=== PATIENT | female | born 1985 | race Caucasian/White ===

== ENCOUNTER 2021-08-24 06:04 | Inpatient (IN) | payer OTHER ==
[2021-08-24] MEDS ORDERED: METHYLERGONOVINE 0.2 MG/ML 1 ML AMP IM PRN (06:21)
[2021-08-24] MEDS ORDERED: CARBOPROST TROMETHAMINE 250 MCG/ML 1 ML AMP IM PRN (06:21)
[2021-08-24] MEDS ORDERED: TERBUTALINE 1 MG/ML VIAL SQ PRN (06:21)
[2021-08-24] MEDS ORDERED: LIDOCAINE 0.5% (PF) 5 MG/ML (50 ML SDV) SQ PRN (06:21)
[2021-08-24] MEDS ORDERED: OXYTOCIN 10 UNIT/ML 1 ML VIAL IM PRN (06:21)
[2021-08-24] MEDS ORDERED: OXYTOCIN 30 UNITS/500 ML NS 30 UNIT in SALINE 1 500ML.BAG IV SCH ×2 (06:30→22:00)
[2021-08-24] MEDS: LACTATED RINGERS 1,000 ML IV SCH ×4 (06:32→20:29)
[2021-08-24 07:24] LABS: Basophils % (A) 0 %; Eosinophils # (A) 0.2 k/uL (0-0.7); Eosinophils % (A) 2 %; HGB 11.9 gm/dL (11.4-16.0); Lymphocytes # (A) 2.2 k/uL (1.0-4.8); Lymphocytes % (A) 27 %; MCH 32.4 pg (25.0-35.0); MCHC 33.9 g/dL (31.0-37.0); MCV 95.4 fL (80.0-100.0); Mean Platelet Volume 8.1; Monocytes # (A) 0.4 k/uL (0-1.0); Monocytes % (A) 5 %; Neutrophils # (A) 5.3 k/uL (1.3-7.7); Neutrophils % (A) 65 %; Platelet Count 231 k/uL (150-450); RBC 3.67 m/uL (3.80-5.40); RDW 12.7 % (11.5-15.5); WBC 8.3 k/uL (3.8-10.6)
--- NOTE | 2021-08-24 08:51 | P.HPOB ---
History of Present Illness H&P Date: 08/24/21 Chief Complaint: IUP at 39-0/7 weeks This is a 36-year-old 1 para 0 at 39 0/7 weeks, estimated due date of 08/31. Patient presents for elective induction of labor. Patient has been receiving routine care which has been essentially uncomplicated. Today patient notes good movement she denies contractions or vaginal bleeding. bloodwork this patient is a blood type of A+, rubella status immune, B surface antigen negative, HIV negative, RPR is nonreactive, group beta strep cultures are negative. Review of Systems Constitutional: Denies chills, Denies fatigue, Denies fever Ears, nose, mouth and throat: Denies headache Cardiovascular: Reports leg edema Respiratory: Denies dyspnea Gastrointestinal: Denies nausea, Denies vomiting Genitourinary: Reports Past Medical History Past Medical History: Asthma, Thyroid Disorder Additional Past Medical History / Comment(s): no thyroid or asthma issues in 5 years History of Any Multi-Drug Resistant Organisms: None Reported Past Surgical History: Orthopedic Surgery Additional Past Surgical History / Comment(s): gastic sleeve, lasik eye, right knee miniscus Past Anesthesia/Blood Transfusion Reactions: No Reported Reaction Past Psychological History: No Psychological Hx Reported Smoking Status: Never smoker Past Drug Use History: None Reported - Past Family History Mother Family Medical History: Cancer, Thyroid Disorder Additional Family Medical History / Comment(s): invasive ductal carcinoma Sister(s) Family Medical History: Thyroid Disorder Father Family Medical History: Hyperlipidemia Medications and Allergies Home Medications Medication Instructions Recorded Confirmed Type Aspirin 81 mg PO DAILY 08/24/21 08/24/21 History Biotin 10,000 mcg PO DAILY 08/24/21 08/24/21 History Pnv,Calcium 72/Iron/Folic Acid 1 each PO DAILY 08/24/21 08/24/21 History [ Plus Tablet] Sennosides/Docusate Sodium 1 each PO DAILY 08/24/21 08/24/21 History [Senna-S 8.6-50 mg Tablet] Allergies Allergy/AdvReac Type Severity Reaction Status Date / Time aspartame Allergy Intermediate Nausea & Verified 08/24/21 06:19 Vomiting latex Allergy Intermediate Rash/Hives Verified 08/24/21 06:19 Exam Osteopathic Statement: *. No significant issues noted on an osteopathic structural exam other than those noted in the History and Physical/Consult. 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 in no acute distress, breathing is noted to be nonlabored, heart has regular rate and rhythm, abdomen is gravid and appropriate for gestational age, on cervical exam she is 2/70/-2 station, amniotomy is performed and clear fluid is obtained, heart tones are noted to be categ ory 1 and she is garo every 2 minutes Results Result Diagrams: 08/24/21 06:35 Abnormal Lab Results - Last 24 Hours (Table) 08/24/21 Range/Units 06:35 RBC 3.67 L (3.80-5.40) m/uL Assessment and Plan (1) Term Current Visit: Yes Status: Acute Code(s): Z34.90 - ENCNTR FOR SUPRVSN OF NORMAL , UNSP, UNSP TRIMESTER SNOMED Code(s): 22220879 (2) AMA (advanced maternal age) primigravida 35+ Current Visit: Yes Status: Acute Code(s): O09.519 - SUPERVISION OF ELDERLY PRIMIGRAVIDA, UNSPECIFIED TRIMESTER SNOMED Code(s): 49501787 Plan: 36-year-old 1 para 0 at 39 0/7 weeks presents for elective induction of labor. Pitocin induction of labor is begun per hospital protocol, amniotomy is performed clear fluid was obtained. Options for analgesia during labor discussed including Stadol, epidural. Patient states understanding. Anticipate spontaneous vaginal delivery later today.
[2021-08-24] MEDS: BUTORPHANOL 1 MG/ML 1 ML VIAL IV PRN ×2 (11:20→14:54)
[2021-08-24] MEDS ORDERED: SODIUM CHLORIDE 0.9% 100 ML BAG ONE (16:02)
[2021-08-24] MEDS ORDERED: ROPIVACAINE 5MG/ML 20ML VIAL ONE (16:02)
[2021-08-24] MEDS ORDERED: fentaNYL (PF) 50 MCG/ML 5 ML AMP ONE (16:02)
[2021-08-24] MEDS ORDERED: ZOLPIDEM 5 MG TAB PO PRN (22:00)
[2021-08-24] MEDS ORDERED: diphenhydrAMINE 50 MG/ML 1 ML VIAL IVP PRN ×2 (22:00)
[2021-08-24] MEDS ORDERED: ACETAMINOPHEN TAB 325 MG TAB PO PRN (22:00)
[2021-08-24] MEDS ORDERED: diphenhydrAMINE 50 MG CAP PO PRN (22:00)
[2021-08-24] MEDS ORDERED: diphenhydrAMINE 25 MG CAP PO PRN (22:00)
[2021-08-24] MEDS ORDERED: HYDROCORTISONE 2.5% RECTAL CREAM 30 GM TUBE RECTAL PRN (22:00)
[2021-08-24] MEDS ORDERED: BENZOCAINE/MENTHOL SPRAY 1 GM/SPRAY AEROSOL TOPICAL PRN (22:00)
[2021-08-24] MEDS ORDERED: SIMETHICONE 80 MG CHEWABLE PO PRN (22:00)
[2021-08-24] MEDS ORDERED: LANOLIN CREAM 5 GM TUBE TOPICAL PRN (22:00)
--- NOTE | 2021-08-24 22:05 | P.PROBDLV ---
Vaginal Delivery Note - . Vaginal Delivery Note: This is a 36-year-old 1 para 0 that presented to labor and delivery at 39 0/7 weeks for induction of labor. Patient was admitted to labor and delivery and Pitocin induction of labor was begun. Patient underwent amniotomy and clear fluid was obtained. Patient progressed through labor eventually becoming uncomfortable and requested epidural placement. Epidural was placed without difficulty by the anesthesia department. Patient progressed to complete began pushing and had a normal spontaneous vaginal delivery of a viable female at 2131, weight of 8 lbs. 8 oz., loose nuchal cord was noted at delivery and delivered through. Apgars of 8 and 9 at one and 5 minutes respectively were noted. After two-minute delay the umbilical cord was doubly clamped and cut and the infant was handed to the maternal abdomen. A spontaneous cry was noted. On inspection the patient's vaginal vault a left lateral sidewall laceration was appreciated. The placenta was delivered spontaneously intact with a three- vessel cord. The laceration site was instilled with lidocaine and closed in the usual fashion with 3-0 Rapide. The uterus is noted to be firm and below the umbilicus. A red rubber catheter was used to drain the bladder of 100 mL of clear yellow urine. Inspection of laceration sites revealed hemostasis. Uterus once again was noted to be firm and below the umbilicus. All counts are noted to be correct 2. Patient and infant tolerated delivery well and are resting comfortably.
[2021-08-24] MEDS: IBUPROFEN 600 MG TAB PO SCH (22:28)
[2021-08-25] MEDS: IBUPROFEN 600 MG TAB PO SCH ×2 (04:31→10:00)
[2021-08-25] MEDS: SENNOSIDES-DOCUSATE SODIUM 1 EACH TAB PO SCH ×2 (07:45→19:30)
--- NOTE | 2021-08-25 08:57 | P.PNOBGVD ---
Subjective - Subjective Principal diagnosis: post day 1, status post normal spontaneous vaginal delivery Interval history: patient did well overnight. She is ambulating and voiding without difficulty. She is tolerating a regular diet without nausea or vomiting. Her lochia is minimal. She is breast-feeding. She states her pain is controlled. Patient reports: Reports appetite normal, Reports voiding normally, Reports pain well controlled, Reports ambulating normally : doing well, nursing well Objective - Latest Vital Signs Latest vital signs: Vital Signs Temp Pulse Resp BP 08/25/21 08:00 97.8 F 71 16 119/80 08/25/21 04:00 97.7 F 89 16 113/72 08/25/21 00:00 97.7 F 90 16 120/70 08/24/21 23:30 82 16 118/68 08/24/21 23:00 79 16 119/63 08/24/21 22:45 94 16 128/78 08/24/21 22:30 113 H 16 121/68 08/24/21 22:15 86 16 132/65 08/24/21 22:00 97.2 F L 100 16 138/56 Intake and Output 08/24/21 08/25/21 08/25/21 22:59 06:59 14:59 Intake Total 172.567 Balance 172.567 Intake: Intake, IV Titration 172.567 Amount Oxytocin 30 Units/500 ml 172.567 Ns 30 unit In Saline 1 500ml.bag @ Per Protocol IV .Q0M [facility] Rx#:[id number] Other: # Voids 100 - Exam Extremities: Present: normal, edema Abdomen: Present: normal appearance Uterus: Present: normal, firm Assessment and Plan (1) Term Current Visit: Yes Status: Acute Code(s): Z34.90 - ENCNTR FOR SUPRVSN OF NORMAL , UNSP, UNSP TRIMESTER SNOMED Code(s): 12271491 (2) AMA (advanced maternal age) primigravida 35+ Current Visit: Yes Status: Acute Code(s): O09.519 - SUPERVISION OF ELDERLY PRIMIGRAVIDA, UNSPECIFIED TRIMESTER SNOMED Code(s): 31455703 (3) Status post normal vaginal delivery Current Visit: Yes Status: Acute Code(s): NBO6856 - SNOMED Code(s): 755478370 (4) Obstetric vaginal laceration with first degree perineal laceration Current Visit: Yes Status: Acute Code(s): O70.0 - FIRST DEGREE PERINEAL LACERATION DURING DELIVERY SNOMED Code(s): 616737874 Plan: 36-year-old 1 now para 1 status post normal spontaneous vaginal delivery, doing well . Plan to continue routine care. Anticipate discharge home tomorrow.
[2021-08-26 00:25] VITALS: RESP 16
[2021-08-26] MEDS: IBUPROFEN 600 MG TAB PO SCH (00:27)
[2021-08-26] MEDS: SENNOSIDES-DOCUSATE SODIUM 1 EACH TAB PO SCH (08:06)
[2021-08-26 08:17] VITALS: BP 123/76; PULSE 87; TEMP 97.8
--- NOTE | 2021-08-26 12:54 | P.DS ---
Providers Date of admission: 08/24/21 06:04 Expected date of discharge: 08/26/21 Attending physician: Merline Barnes Primary care physician: Stated None - Discharge Diagnosis(es) (1) Term Current Visit: Yes Status: Acute (2) AMA (advanced maternal age) primigravida 35+ Current Visit: Yes Status: Acute (3) Status post normal vaginal delivery Current Visit: Yes Status: Acute (4) Obstetric vaginal laceration with first degree perineal laceration Current Visit: Yes Status: Acute Hospital Course: this is a 36-year-old 1 now para 1 presented to labor and delivery at 39-0/7 weeks for induction of labor. for full details on this patient please see the dictated history and physical. Patient was admitted to labor and delivery and Pitocin induction of labor was begun per hospital protocol. patient underwent amniotomy clear fluid was obtained. Patient did request epidural placement for pain during labor. Anesthesia was able to place epidural without difficulty. Patient made slow progress eventually becoming complete and began pushing. Patient had a normal spontaneous vaginal delivery of a viable female at 2131, weight of 8 lbs. 8 oz., Apgars of 8 and 9 at one and 5 minutes respectively were noted. Patient did sustain a first-degree vaginal laceration which was repaired in the usual fashion with 3-0 Rapide. The laceration was appreciated on the lateral sidewall. Patient's course has been uneventful. On this day #2 she is ambulating and voiding without difficulty. She is tolerating a regular diet without nausea or vomiting. She states her pain is well-controlled and she does desire discharge home. Plan - Discharge Summary New Discharge Prescriptions: No Action Pnv,Calcium 72/Iron/Folic Acid [ Plus Tablet] 1 each PO DAILY Biotin 10,000 mcg PO DAILY Aspirin 81 mg PO DAILY Sennosides/Docusate Sodium [Senna-S 8.6-50 mg Tablet] 1 each PO DAILY Discharge Medication List Aspirin 81 mg PO DAILY 08/24/21 [History] Biotin 10,000 mcg PO DAILY 08/24/21 [History] Pnv,Calcium 72/Iron/Folic Acid [ Plus Tablet] 1 each PO DAILY 08/24/21 [History] Sennosides/Docusate Sodium [Senna-S 8.6-50 mg Tablet] 1 each PO DAILY 08/24/21 [History] Follow up Appointment(s)/Referral(s): Merline Barnes DO [Doctor of Osteopathic Medicine] - 4 Weeks Patient Instructions/Handouts: Vaginal Delivery (DC), Vaginal Delivery (GEN) Discharge Disposition: HOME SELF-CARE
== END 2021-08-26 14:00 | disposition home or self-care (01) | DRG 807 ==
LOC: 4FBP 06:04
PROVIDERS: ADMIT Obstetrics & Gynecology Obstetrics; ATTEND Obstetrics & Gynecology Obstetrics
PROC: 10E0XZZ Delivery of Products of Conception, External Approach (ICD-10-PCS; principal; 2021-08-24)
PROC: 0HQ9XZZ Repair Perineum Skin, External Approach (ICD-10-PCS; 2021-08-24)
PROC: 3E033VJ Introduction of Other Hormone into Peripheral Vein, Percutaneous Approach (ICD-10-PCS; 2021-08-24)
PROC: 10907ZC Drainage of Amniotic Fluid, Therapeutic from Products of Conception, Via Natural or Artificial Opening (ICD-10-PCS; 2021-08-24)
DX: O70.0 First degree perineal laceration during delivery (principal); Z37.0 Single live birth; O69.81X0 Labor and delivery complicated by cord around neck, without compression, not applicable or unspecified; K21.9 Gastro-esophageal reflux disease without esophagitis; O99.62 Diseases of the digestive system complicating childbirth; Z79.82 Long term (current) use of aspirin; Z80.3 Family history of malignant neoplasm of breast; Z83.49 Family history of other endocrine, nutritional and metabolic diseases; Z3A.39 39 weeks gestation of pregnancy; Z91.040 Latex allergy status; Z91.02 Food additives allergy status
CPT/HCPCS: 85025; 86850; 86900; 86901

== ENCOUNTER 2022-08-02 22:01 | Emergency (ER) | payer OTHER ==
[2022-08-02 22:20] VITALS: RESP 16; TEMP 97.9
[2022-08-02] MEDS ORDERED: SODIUM CHLORIDE 0.9% 1,000 ML IV STA (22:57)
[2022-08-02 23:40] LABS: Basophils % (A) 0 %; Eosinophils # (A) 0.1 k/uL (0-0.7); Eosinophils % (A) 1 %; HCT 36.8 % (34.0-46.0); HGB 12.7 gm/dL (11.4-16.0); Lymphocytes % (A) 11 %; MCHC 34.5 g/dL (31.0-37.0); MCV 92.7 fL (80.0-100.0); Mean Platelet Volume 7.8; Monocytes # (A) 0.3 k/uL (0-1.0); Monocytes % (A) 3 %; Neutrophils # (A) 7.5 k/uL (1.3-7.7); Neutrophils % (A) 83 %; Platelet Count 221 k/uL (150-450); RBC 3.97 m/uL (3.80-5.40); RDW 12.5 % (11.5-15.5)
[2022-08-02 23:50] LABS: ALT 14 U/L (4-34); AST 18 U/L (14-36); African American GFR (CKD) >90 (>60 ml/min/1.73 sqM); Albumin 3.5 g/dL (3.5-5.0); Alkaline Phosphatase 136 U/L (38-126); Anion Gap 8 mmol/L; Appearance,Urine Cloudy (Clear); Bacteria,Urine Rare /hpf; Bilirubin,Urine Negative (Negative); Blood Urea Nitrogen 10 mg/dL (7-17); Blood,Urine Negative (Negative); Calcium 8.1 mg/dL (8.4-10.2); Carbon Dioxide 22 mmol/L (22-30); Chloride 103 mmol/L (98-107); Color,Urine Yellow; Glucose 96 mg/dL (74-99); Glucose,Urine (UA) Negative (Negative); INR 0.9 (<1.2); Ketones,Urine 2+ (Negative); Leukocyte Esterase,Urine Small (Negative); Mucus,Urine Moderate /hpf; Nitrite,Urine Negative (Negative); Non-African American GFR(CKD) >90 (>60 ml/min/1.73 sqM); Partial Thromboplastin Time 23.5 sec (22.0-30.0); Potassium 3.5 mmol/L (3.5-5.1); Protein,Urine 1+ (Negative); Prothrombin Time 10.1 sec (9.0-12.0); RBC,Urine 3 /hpf (0-5); Sodium 133 mmol/L (137-145); Squamous Epithelial Cell,Urine 19 /hpf (0-4); Total Bilirubin 0.5 mg/dL (0.2-1.3); Total Protein 6.5 g/dL (6.3-8.2); WBC,Urine 3 /hpf (0-5)
--- NOTE | 2022-08-03 00:05 | XR ---
EXAMINATION TYPE: XR chest 1V DATE OF EXAM: 08/02/2022 COMPARISON: 01/19/2016 HISTORY: Difficulty breathing TECHNIQUE: FINDINGS: Heart and mediastinum are normal. Lungs are clear. Diaphragm is normal. Bony thorax is inta ct. There are chest leads. IMPRESSION: Normal chest. No change.
[2022-08-03] MEDS ORDERED: METOCLOPRAMIDE 5 MG/ML 2 ML VIAL IVP STA (01:15)
[2022-08-03] MEDS ORDERED: diphenhydrAMINE 50 MG/ML 1 ML VIAL IVP STA (01:15)
--- NOTE | 2022-08-03 01:16 | ED ---
SOB HPI - General Chief Complaint: Shortness of Breath Stated Complaint: SOB, Vomiting, 32 Week Preg Time Seen by Provider: 08/02/22 22:26 Source: patient Mode of arrival: ambulatory Limitations: no limitations - History of Present Illness Initial Comments: 37-year-old female with past medical history of mild intermittent asthma with shortness of breath, nausea and vomiting. Patient is currently 32 weeks . States that for the past several days she has had nausea with poor oral intake. Denies eating any tainted foods. No sick contacts with similar symptoms. Reports that she did not have much nausea with this . Denies any issues with hyperglycemia or hypertension. Today the patient felt as if she could not get a deep breath. She called her OB who recommended that she come into the emergency room for evaluation. She denies any abdominal pain, vaginal bleeding or cramping. No chest pain. No calf pain or swelling. No history of DVT or PE. No fevers, chills or cough. Patient did take Pepto 3 days ago for upset stomach however has not used any other at home medications. No other alleviating, precipitating or modifying factors - Related Data Home Medications Medication Instructions Recorded Confirmed Aspirin 81 mg PO DAILY 08/24/21 08/24/21 Biotin 10,000 mcg PO DAILY 08/24/21 08/24/21 Vit No.180/Iron/Folic 1 each PO DAILY 08/24/21 08/24/21 [ Plus Tablet] Sennosides/Docusate Sodium 1 each PO DAILY 08/24/21 08/24/21 [Senna-S 8.6-50 mg Tablet] Previous Rx's Medication Instructions Recorded Cephalexin [Keflex] 500 mg PO BID 1 Days #20 cap 08/03/22 Allergies Allergy/AdvReac Type Severity Reaction Status Date / Time aspartame Allergy Intermediate Nausea & Verified 08/24/21 06:19 Vomiting latex Allergy Intermediate Rash/Hives Verified 08/24/21 06:19 Review of Systems ROS Statement: Those systems with pertinent positive or pertinent negative responses have been documented in the HPI. ROS Other: All systems not noted in ROS Statement are negative. Past Medical History Past Medical History: Asthma, Thyroid Disorder Additional Past Medical History / Comment(s): no thyroid or asthma issues in 5 years History of Any Multi-Drug Resistant Organisms: None Reported Past Surgical History: Orthopedic Surgery Additional Past Surgical History / Comment(s): gastic sleeve, lasik eye, right knee miniscus Past Anesthesia/Blood Transfusion Reactions: No Reported Reaction Past Psychological History: No Psychological Hx Reported Smoking Status: Never smoker Past Alcohol Use History: None Reported Past Drug Use History: None Reported - Past Family History Mother Family Medical History: Cancer, Thyroid Disorder Additional Family Medical History / Comment(s): invasive ductal carcinoma Sister(s) Family Medical History: Thyroid Disorder Father Family Medical History: Hyperlipidemia General Exam Limitations: no limitations General appearance: alert, in no apparent distress Head exam: Present: atraumatic, normocephalic, normal inspection Eye exam: Present: normal appearance, PERRL, EOMI. Absent: scleral icterus, conjunctival injection, periorbital swelling ENT exam: Present: normal exam, mucous membranes moist Neck exam: Present: normal inspection. Absent: tenderness, meningismus, lymphadenopathy Respiratory exam: Present: normal lung sounds bilaterally. Absent: respiratory distress, wheezes, rales, rhonchi, stridor Cardiovascular Exam: Present: regular rate, normal rhythm, normal heart sounds. Absent: systolic murmur, diastolic murmur, rubs, gallop, clicks GI/Abdominal exam: Present: soft, normal bowel sounds, other (gravid). Absent: distended, tenderness, guarding, rebound, rigid Extremities exam: Present: normal inspection, full ROM, normal capillary refill. Absent: tenderness, pedal edema, joint swelling, calf tenderness Back exam: Present: normal inspection Neurological exam: Present: alert, oriented X3, CN II-XII intact Psychiatric exam: Present: normal affect, normal mood Skin exam: Present: warm, dry, intact, normal color. Absent: rash Course Vital Signs 08/02/22 08/03/22 08/03/22 22:18 00:16 02:23 Temperature 97.9 F Pulse Rate 97 79 92 Respiratory 16 16 16 Rate Blood Pressure 106/72 104/61 112/72 O2 Sat by Pulse 98 Oximetry Medical Decision Making - Medical Decision Making On arrival patient was placed into room 26. Thorough history and physical exam was performed. IV access was established. Patient was given a liter bolus normal saline, 10 mg of Reglan and 25 mg of Benadryl. Laboratory studies are conducted and reviewed. Mild hyponatremia with a sodium of 133. Urine shows 2+ ketones. Rare bacteria however this is not a clean sample. Covid and influenza are negative. Chest x-ray is performed with permission from the patient which demonstrates no acute findings. Patient is reevaluated and reports that she feels improved in her symptoms. I did discuss the diagnosis, differential treatment options. Ultrasound is performed at bedside. Demonstrates positive heart tone of 146. Positive movement. Head is down. Patient r eports that she feels improved with IV fluids. She will be discharged home. Instructed to increase fluid intake. Follow with her OB in office in 2-4 days. I offered her something for nausea at home however patient refused. She is instructed to return for any new or worsening symptoms. Patient was agreeable to plan and discharged home in stable condition - Lab Data Result diagrams: 08/02/22 23:27 08/02/22 23:27 Lab Results 08/02/22 08/02/22 08/02/22 Range/Units 23:27 23:27 23:27 WBC 9.0 (3.8-10.6) k/uL RBC 3.97 (3.80-5.40) m/uL Hgb 12.7 (11.4-16.0) gm/dL Hct 36.8 (34.0-46.0) % MCV 92.7 (80.0-100.0) fL MCH 32.0 (25.0-35.0) pg MCHC 34.5 (31.0-37.0) g/dL RDW 12.5 (11.5-15.5) % Plt Count 221 (150-450) k/uL MPV 7.8 Neutrophils % 83 % Lymphocytes % 11 % Monocytes % 3 % Eosinophils % 1 % Basophils % 0 % Neutrophils # 7.5 (1.3-7.7) k/uL Lymphocytes # 1.0 (1.0-4.8) k/uL Monocytes # 0.3 (0-1.0) k/uL Eosinophils # 0.1 (0-0.7) k/uL Basophils # 0.0 (0-0.2) k/uL PT 10.1 (9.0-12.0) sec INR 0.9 (<1.2) APTT 23.5 (22.0-30.0) sec Sodium (137-145) mmol/L Potassium (3.5-5.1) mmol/L Chloride (98-107) mmol/L Carbon Dioxide (22-30) mmol/L Anion Gap mmol/L BUN (7-17) mg/dL Creatinine (0.52-1.04) mg/dL Est GFR (CKD-EPI)AfAm (>60 ml/min/1.73 sqM) Est GFR (CKD-EPI)NonAf (>60 ml/min/1.73 sqM) Glucose (74-99) mg/dL Plasma Lactic Acid Hernán (0.7-2.0) mmol/L Calcium (8.4-10.2) mg/dL Total Bilirubin (0.2-1.3) mg/dL AST (14-36) U/L ALT (4-34) U/L Alkaline Phosphatase (38-126) U/L Troponin I (0.000-0.034) ng/mL Total Protein (6.3-8.2) g/dL Albumin (3.5-5.0) g/dL Urine Color Yellow Urine Appearance Cloudy H (Clear) Urine pH 6.0 (5.0-8.0) Ur Specific [place] 1.030 (1.001-1.035) Urine Protein 1+ H (Negative) Urine Glucose (UA) Negative (Negative) Urine Ketones 2+ H (Negative) Urine Blood Negative (Negative) Urine Nitrite Negative (Negative) Urine Bilirubin Negative (Negative) Urine Urobilinogen 2.0 (<2.0) mg/dL Ur Leukocyte Esterase Small H (Negative) Urine RBC 3 (0-5) /hpf Urine WBC 3 (0-5) /hpf Ur Squamous Epith Cells 19 H (0-4) /hpf Urine Bacteria Rare H (None) /hpf Urine Mucus Moderate H (None) /hpf Coronavirus (PCR) (Not Detectd) Influenza Type A RNA (Not Detectd) Influenza Type B (PCR) (Not Detectd) 08/02/22 08/02/22 08/02/22 Range/Units 23:27 23:27 23:27 WBC (3.8-10.6) k/uL RBC (3.80-5.40) m/uL Hgb (11.4-16.0) gm/dL Hct (34.0-46.0) % MCV (80.0-100.0) fL MCH (25.0-35.0) pg MCHC (31.0-37.0) g/dL RDW (11.5-15.5) % Plt Count (150-450) k/uL MPV Neutrophils % % Lymphocytes % % Monocytes % % Eosinophils % % Basophils % % Neutrophils # (1.3-7.7) k/uL Lymphocytes # (1.0-4.8) k/uL Monocytes # (0-1.0) k/uL Eosinophils # (0-0.7) k/uL Basophils # (0-0.2) k/uL PT (9.0-12.0) sec INR (<1.2) APTT (22.0-30.0) sec Sodium 133 L (137-145) mmol/L Potassium 3.5 (3.5-5.1) mmol/L Chloride 103 (98-107) mmol/L Carbon Dioxide 22 (22-30) mmol/L Anion Gap 8 mmol/L BUN 10 (7-17) mg/dL Creatinine 0.46 L (0.52-1.04) mg/dL Est GFR (CKD-EPI)AfAm >90 (>60 ml/min/1.73 sqM) Est GFR (CKD-EPI)NonAf >90 (>60 ml/min/1.73 sqM) Glucose 96 (74-99) mg/dL Plasma Lactic Acid Hernán 0.9 (0.7-2.0) mmol/L Calcium 8.1 L (8.4-10.2) mg/dL Total Bilirubin 0.5 (0.2-1.3) mg/dL AST 18 (14-36) U/L ALT 14 (4-34) U/L Alkaline Phosphatase 136 H (38-126) U/L Troponin I <0.012 (0.000-0.034) ng/mL Total Protein 6.5 (6.3-8.2) g/dL Albumin 3.5 (3.5-5.0) g/dL Urine Color Urine Appearance (Clear) Urine pH (5.0-8.0) Ur Specific [place] (1.001-1.035) Urine Protein (Negative) Urine Glucose (UA) (Negative) Urine Ketones (Negative) Urine Blood (Negative) Urine Nitrite (Negative) Urine Bilirubin (Negative) Urine Urobilinogen (<2.0) mg/dL Ur Leukocyte Esterase (Negative) Urine RBC (0-5) /hpf Urine WBC (0-5) /hpf Ur Squamous Epith Cells (0-4) /hpf Urine Bacteria (None) /hpf Urine Mucus (None) /hpf Coronavirus (PCR) (Not Detectd) Influenza Type A RNA (Not Detectd) Influenza Type B (PCR) (Not Detectd) 08/02/22 08/03/22 Range/Units 23:27 00:46 WBC (3.8-10.6) k/uL RBC (3.80-5.40) m/uL Hgb (11.4-16.0) gm/dL Hct (34.0-46.0) % MCV (80.0-100.0) fL MCH (25.0-35.0) pg MCHC (31.0-37.0) g/dL RDW (11.5-15.5) % Plt Count (150-450) k/uL MPV Neutrophils % % Lymphocytes % % Monocytes % % Eosinophils % % Basophils % % Neutrophils # (1.3-7.7) k/uL Lymphocytes # (1.0-4.8) k/uL Monocytes # (0-1.0) k/uL Eosinophils # (0-0.7) k/uL Basophils # (0-0.2) k/uL PT (9.0-12.0) sec INR (<1.2) APTT (22.0-30.0) sec Sodium (137-145) mmol/L Potassium (3.5-5.1) mmol/L Chloride (98-107) mmol/L Carbon Dioxide (22-30) mmol/L Anion Gap mmol/L BUN (7-17) mg/dL Creatinine (0.52-1.04) mg/dL Est GFR (CKD-EPI)AfAm (>60 ml/min/1.73 sqM) Est GFR (CKD-EPI)NonAf (>60 ml/min/1.73 sqM) Glucose (74-99) mg/dL Plasma Lactic Acid Hernán (0.7-2.0) mmol/L Calcium (8.4-10.2) mg/dL Total Bilirubin (0.2-1.3) mg/dL AST (14-36) U/L ALT (4-34) U/L Alkaline Phosphatase (38-126) U/L Troponin I (0.000-0.034) ng/mL Total Protein (6.3-8.2) g/dL Albumin (3.5-5.0) g/dL Urine Color Urine Appearance (Clear) Urine pH (5.0-8.0) Ur Specific [place] (1.001-1.035) Urine Protein (Negative) Urine Glucose (UA) (Negative) Urine Ketones (Negative) Urine Blood (Negative) Urine Nitrite (Negative) Urine Bilirubin (Negative) Urine Urobilinogen (<2.0) mg/dL Ur Leukocyte Esterase (Negative) Urine RBC (0-5) /hpf Urine WBC (0-5) /hpf Ur Squamous Epith Cells (0-4) /hpf Urine Bacteria (None) /hpf Urine Mucus (None) /hpf Coronavirus (PCR) Not Detected (Not Detectd) Influenza Type A RNA Not Detected (Not Detectd) Influenza Type B (PCR) Not Detected (Not Detectd) - EKG Data EKG Comments: EKG demonstrates sinus rhythm with a rate of 71. [place] interval 128. QRS 84. QTC of 41. No acute ST segment elevations or depressions Disposition Clinical Impression: Dehydration, Abnormal urinalysis, Third trimester , Nausea Disposition: HOME SELF-CARE Condition: Stable Instructions (If sedation given, give patient instructions): Nausea and Vomiting in (ED) Additional Instructions: Please take the antibiotics as directed. Increased fluid intake. Return for any new or worsening symptoms. Prescriptions: Cephalexin [Keflex] 500 mg PO BID 1 Days #20 cap Is patient prescribed a controlled substance at d/c from ED?: No Referrals: Je Suresh DO [Primary Care Provider] - 1-2 days Time of Disposition: 02:11
[2022-08-03] MEDS ORDERED: CEPHALEXIN 500 MG CAP PO STA (02:10)
[2022-08-03 02:26] VITALS: BP 112/72; PULSE 92
== END 2022-08-03 02:26 | disposition home or self-care (01) ==
LOC: EC 22:01
DX: O26.893 Other specified pregnancy related conditions, third trimester (principal); E86.0 Dehydration; R82.90 Unspecified abnormal findings in urine; R11.0 Nausea; J45.909 Unspecified asthma, uncomplicated; E03.9 Hypothyroidism, unspecified; Z3A.32 32 weeks gestation of pregnancy; Z91.040 Latex allergy status; Z91.02 Food additives allergy status; Z20.822 Contact with and (suspected) exposure to COVID-19
CPT/HCPCS: 36415; 93005; 80053; 83605; 84484; 85025; 85610; 85730; 81001; 87502; 87635; 71045; 99285; 96374; 96375; 96361 ×2; J1200; J2765

== ENCOUNTER 2022-09-23 06:00 | Inpatient (IN) | payer OTHER ==
[2022-09-23] MEDS ORDERED: TERBUTALINE 1 MG/ML VIAL SQ PRN (06:18)
[2022-09-23] MEDS ORDERED: LIDOCAINE 0.5% (PF) 5 MG/ML (50 ML SDV) SQ PRN (06:18)
[2022-09-23] MEDS ORDERED: OXYTOCIN 30 UNITS/500 ML NS 30 UNIT in SALINE 1 500ML.BAG IV SCH ×2 (06:30→13:30)
[2022-09-23] MEDS: LACTATED RINGERS 1,000 ML IV SCH ×2 (06:37→18:14)
[2022-09-23 06:57] LABS: Basophils % (A) 1 %; Eosinophils # (A) 0.1 k/uL (0-0.7); Eosinophils % (A) 2 %; HCT 33.7 % (34.0-46.0); HGB 11.8 gm/dL (11.4-16.0); Lymphocytes # (A) 1.9 k/uL (1.0-4.8); Lymphocytes % (A) 28 %; MCH 32.2 pg (25.0-35.0); MCV 92.1 fL (80.0-100.0); Mean Platelet Volume 8.4; Monocytes # (A) 0.3 k/uL (0-1.0); Monocytes % (A) 5 %; Neutrophils # (A) 4.3 k/uL (1.3-7.7); Neutrophils % (A) 64 %; Platelet Count 225 k/uL (150-450); RBC 3.65 m/uL (3.80-5.40); RDW 13.4 % (11.5-15.5); WBC 6.7 k/uL (3.8-10.6)
--- NOTE | 2022-09-23 13:07 | P.PROBDLV ---
Vaginal Delivery Note - . Vaginal Delivery Note: Findings: Viable female delivered at 1246, weight of 6 pounds 14.2 ounces This is a 37-year-old that presented to labor and delivery at 39-2/7 weeks for elective induction of labor. Patient was admitted to labor and delivery and Pitocin induction of labor was begun. Patient underwent amniotomy and clear fluid was obtained. Patient progressed through labor eventually becoming complete and began pushing. With excellent maternal effort the infant was brought down to presentation. With additional pushing the anterior followed by the posterior shoulder were delivered along with the body. The was then placed on the maternal abdomen. Spontaneous cry was noted at . After two-minute delayed the umbilical cord was doubly clamped and cut and the infant was handed to. The placenta was then delivered spontaneously intact with a three-vessel cord being noted. On inspection the patient's vaginal vault a small clitoral laceration was appreciated. Bleeding was noted therefore it was closed in a [id number] fashion with 4-0 chromic after instillation of lidocaine. Patient tolerated closure well. Hemostasis was appreciated. Uterus is noted be firm and below the umbilicus. Estimated blood loss 100 mL. Patient and tolerated delivery well and are resting comfortable he. All counts were noted to be correct 2 at the end of the delivery.
--- NOTE | 2022-09-23 13:09 | P.HPOB ---
History of Present Illness H&P Date: 09/23/22 Chief Complaint: term This is a 37 yo at 39 weeks of gestation that presents for induction of labor. she is noting good FM, occ ctx. she denies LOF, VB she has been receiving routine care with myself which has been essentially uncomplicated. on blood work she has a blood type of A+, rubella status immune, hepatitis B surface antigen negative, HIV nonreactive, RPR nonreactive, group beta strep cultures are negative. Past Medical History Past Medical History: Asthma, Thyroid Disorder Additional Past Medical History / Comment(s): no thyroid or asthma issues in 5 y ears History of Any Multi-Drug Resistant Organisms: None Reported Past Surgical History: Orthopedic Surgery Additional Past Surgical History / Comment(s): gastic sleeve, lasik eye, right knee miniscus Past Anesthesia/Blood Transfusion Reactions: No Reported Reaction Past Psychological History: No Psychological Hx Reported Smoking Status: Never smoker Past Alcohol Use History: None Reported Past Drug Use History: None Reported - Past Family History Mother Family Medical History: Cancer, Thyroid Disorder Additional Family Medical History / Comment(s): invasive ductal carcinoma Sister(s) Family Medical History: Thyroid Disorder Father Family Medical History: Hyperlipidemia Medications and Allergies Home Medications Medication Instructions Recorded Confirmed Type Aspirin 81 mg PO DAILY 08/24/21 09/23/22 History Biotin 10,000 mcg PO DAILY 08/24/21 09/23/22 History Vit No.180/Iron/Folic 1 each PO DAILY 08/24/21 09/23/22 History [ Plus Tablet] Allergies Allergy/AdvReac Type Severity Reaction Status Date / Time aspartame Allergy Intermediate Nausea & Verified 09/23/22 06:17 Vomiting latex Allergy Intermediate Rash/Hives Verified 09/23/22 06:17 Exam Osteopathic Statement: *. No significant issues noted on an osteopathic structural exam other than those noted in the History and Physical/Consult. Vital Signs Temp Pulse Resp BP Pulse Ox 09/23/22 06:16 96.0 F L 81 16 126/80 99 Intake and Output 09/22/22 09/23/22 09/23/22 22:59 06:59 14:59 Other: Weight 98.883 kg Results Result Diagrams: 09/23/22 06:35 Abnormal Lab Results - Last 24 Hours (Table) 09/23/22 Range/Units 06:35 RBC 3.65 L (3.80-5.40) m/uL Hct 33.7 L (34.0-46.0) % Assessment and Plan (1) AMA (advanced maternal age) primigravida 35+ Current Visit: No Status: Acute Code(s): O09.519 - SUPERVISION OF ELDERLY PRIMIGRAVIDA, UNSPECIFIED TRIMESTER SNOMED Code(s): 75525877 (2) Term Current Visit: No Status: Acute Code(s): Z34.90 - ENCNTR FOR SUPRVSN OF NORMAL , UNSP, UNSP TRIMESTER SNOMED Code(s): 36454098 Plan: 37-year-old at 39-2/7 weeks that presents to labor and delivery for elective induction of labor. Patient is admitted to labor and delivery and Pitocin induction of labor is begun. Options for analgesia are discussed including epidural, nitrous, Stadol. Patient will consider. Anticipate spontaneous vaginal delivery later today.
[2022-09-23] MEDS ORDERED: SIMETHICONE 80 MG CHEWABLE PO PRN (13:16)
[2022-09-23] MEDS ORDERED: BENZOCAINE/MENTHOL SPRAY 1 GM/SPRAY AEROSOL TOPICAL PRN (13:16)
[2022-09-23] MEDS ORDERED: HYDROCORTISONE 2.5% RECTAL CREAM 30 GM TUBE RECTAL PRN (13:16)
[2022-09-23] MEDS ORDERED: ACETAMINOPHEN TAB 325 MG TAB PO PRN (13:16)
[2022-09-23] MEDS ORDERED: diphenhydrAMINE 50 MG/ML 1 ML VIAL IVP PRN ×2 (13:16)
[2022-09-23] MEDS ORDERED: LANOLIN CREAM 5 GM TUBE TOPICAL PRN (13:16)
[2022-09-23] MEDS ORDERED: diphenhydrAMINE 25 MG CAP PO PRN (13:16)
[2022-09-23] MEDS ORDERED: ZOLPIDEM 5 MG TAB PO PRN (13:16)
[2022-09-23] MEDS ORDERED: diphenhydrAMINE 50 MG CAP PO PRN (13:16)
[2022-09-23] MEDS ORDERED: IBUPROFEN 600 MG TAB PO SCH (13:30)
[2022-09-23] MEDS: SENNOSIDES-DOCUSATE SODIUM 1 EACH TAB PO SCH (20:13)
[2022-09-24] MEDS ORDERED: PRENATAL VIT-IRON-FOLIC ACID 1 EACH TABLET PO SCH (09:00)
--- NOTE | 2022-09-24 09:03 | P.DS ---
Providers Date of admission: 09/23/22 06:13 Expected date of discharge: 09/24/22 Attending physician: Merline Barnes Primary care physician: Stated None - Discharge Diagnosis(es) (1) AMA (advanced maternal age) primigravida 35+ Current Visit: No Status: Acute (2) Term Current Visit: No Status: Acute (3) Status post normal vaginal delivery Current Visit: No Status: Acute Hospital Course: This is a 37-year-old G2 now P2 presented to labor and delivery at 39-2/7 weeks for elective induction of labor. Patient was admitted to labor and delivery and Pitocin induction of labor was begun. Patient underwent amniotomy and clear fluid was obtained. Patient progressed through labor eventually becoming complete began pushing. Patient had a normal spontaneous vaginal delivery of a viable female infant at 1246, weight of 6 pounds 14.2 ounces. Patient did sustain a small clitoral laceration which was repaired without difficulty with 4-0 chromic. Patient's course is been uneventful. This day number when she is ambulating and voiding without difficulty. She is tolerating regular diet without nausea or vomiting. She states her pain is well-controlled. She denies concerns. Patient Condition at Discharge: Good Plan - Discharge Summary Discharge Rx Participant: No New Discharge Prescriptions: No Action Vit No.180/Iron/Folic [ Plus Tablet] 1 each PO DAILY Biotin 10,000 mcg PO DAILY Aspirin 81 mg PO DAILY Discharge Medication List Aspirin 81 mg PO DAILY 08/24/21 [History] Biotin 10,000 mcg PO DAILY 08/24/21 [History] Vit No.180/Iron/Folic [ Plus Tablet] 1 each PO DAILY 08/24/21 [History] Follow up Appointment(s)/Referral(s): Merline Barnes DO [Doctor of Osteopathic Medicine] - 4 Weeks Patient Instructions/Handouts: Vaginal Delivery (DC), Vaginal Delivery (GEN) Discharge Disposition: HOME SELF-CARE
[2022-09-24 10:25] VITALS: BP 111/73; PULSE 56; RESP 14; TEMP 97.8
[2022-09-24] MEDS: SENNOSIDES-DOCUSATE SODIUM 1 EACH TAB PO SCH (10:26)
== END 2022-09-24 15:58 | disposition home or self-care (01) | DRG 768 ==
LOC: 4FBP 06:13
PROVIDERS: ADMIT Obstetrics & Gynecology Obstetrics; ATTEND Obstetrics & Gynecology Obstetrics
PROC: 3E033VJ Introduction of Other Hormone into Peripheral Vein, Percutaneous Approach (ICD-10-PCS; principal; 2022-09-23)
PROC: 10907ZC Drainage of Amniotic Fluid, Therapeutic from Products of Conception, Via Natural or Artificial Opening (ICD-10-PCS; principal; 2022-09-23)
PROC: 0UQJXZZ Repair Clitoris, External Approach (ICD-10-PCS; principal; 2022-09-23)
PROC: 10E0XZZ Delivery of Products of Conception, External Approach (ICD-10-PCS; principal; 2022-09-23)
DX: O70.0 First degree perineal laceration during delivery (principal); Z37.0 Single live birth; Z28.310 Unvaccinated for COVID-19; Z79.82 Long term (current) use of aspirin; Z79.899 Other long term (current) drug therapy; Z91.040 Latex allergy status; Z87.09 Personal history of other diseases of the respiratory system; Z86.39 Personal history of other endocrine, nutritional and metabolic disease; Z98.84 Bariatric surgery status; Z3A.39 39 weeks gestation of pregnancy
CPT/HCPCS: 85025; 86850; 86900; 86901